=== PATIENT | male | born 1965 | race Caucasian/White ===

== ENCOUNTER 2022-09-12 13:42 | Emergency (ER) | payer BC, SELFPAY ==
--- NOTE | ~2022-09-12 | XR_ITS ---
EXAMINATION: XR chest 1V portable DATE: 09/12/2022 13:57 INDICATION: Cough. TECHNIQUE: A single frontal view of the chest was obtained. COMPARISON: None. FINDINGS: There is no pneumonia, pleural effusion, or pneumothorax. The heart size is normal. IMPRESSION: 1. No acute cardiopulmonary disease. Reviewed, dictated and finalized at location A. BOTTLE INSPECTOR
[2022-09-12 13:45] VITALS: BP 138/58; PULSE 77; RESP 16; TEMP 36.8; O2SAT 99
--- NOTE | 2022-09-12 14:03 | ECG_ITS ---
Measurements Intervals [place] Rate: 78 P: 34 AR: 191 QRS: 52 QRSD: 113 T: 13 QT: 356 QTc: 408 Interpretive Statements SINUS RHYTHM INCOMPLETE RIGHT BUNDLE BRANCH BLOCK BASELINE ARTIFACT- V3, V5 BORDERLINE ECG NO PREVIOUS ECG AVAILABLE FOR COMPARISON Electronically Signed On 09-12-2022 14:38:50 SPEEDOMETER INSPECTOR by Brian Maria D.O.
--- NOTE | 2022-09-12 14:05 | ED.SOB ---
HPI - SOB/Dyspnea General Chief Complaint: Shortness of Breath/Dyspnea Stated Complaint: asthma attack? Time Seen by Provider: 09/12/22 13:50 History of Present Illness HPI Narrative: Patient is a 57-year-old male here for evaluation of sensation of throat tightness yesterday. Patient states that when he was going to bed he felt that his throat was very dry and irritated. Shortly afterwards he had the sensation of his throat closing and he had his son call an ambulance. States by the time the ambulance got there his symptoms improved and he was asymptomatic and decided to sleep it off. His symptoms have improved since then, currently complaining of a mild pain in his chest that is worse with deep breaths and also some residual throat tightness. He states he seen an kickboxing instructor in the past and has had negative allergen testing. He has a history of COPD and has been out of his inhalers for several weeks. Denies history of anxiety. Related Data Allergies Allergy/AdvReac Type Severity Reaction Status Date / Time No Known Allergies Allergy Verified 09/12/22 14:22 Review of Systems Review of Systems: Gen.: Denies fevers or chills Eyes: Denies eye pain or visual change ENT: Denies congestion Respiratory: Denies shortness of breath or cough CV: Denies chest pain or palpitations GI: Denies abdominal pain nausea, emesis or diarrhea denies burning, urgency, frequency or hematuria Musculoskeletal: Denies back pain or muscle pain Neuro: Denies numbness, tingling, weakness or focal weakness Skin: Denies rash Except as documented, all other systems reviewed and negative Exam Narrative: APPEARANCE: Well appearing, no pain in distress, well-nourished. Head: Normocephalic and atraumatic. EYES: PERRLA/EOMI, conjunctivae clear NOSE: No nasal drainage EARS: External ear normal in appearance THROAT: Posterior oropharynx without any erythema, tonsillar swelling or exudates. Uvula is midline. Oropharynx is clear. Mucous membranes are moist. NECK: Supple. No adenopathy, no masses. RESPIRATORY: Airway patent, respirations nonlabored. Clear to auscultation bilaterally, no rales, rhonchi, wheezing. CARDIOVASCULAR: Regular rate and rhythm without murmurs, rubs, or gallops. ABDOMINAL: Normoactive bowel sounds. Soft, nontender, nondistended. No rebound tenderness or guarding. MUSCULOSKELETAL: Extremities are warm and well-perfused. Moves all extremities well. No edema. NEURO: Normal speech. No focal neurologic deficits. SKIN: Skin is warm and dry. No rashes. PSYCHIATRIC: Normal affect/mood. Course Vital Signs Vital signs: Vital Signs Temperature 98.2 F 09/12/22 13:45 Pulse Rate 77 09/12/22 13:45 Respiratory Rate 16 09/12/22 13:45 Blood Pressure 138/58 L 09/12/22 13:45 Pulse Oximetry 99 09/12/22 13:45 Temperature 98.2 F 09/12/22 13:45 Pulse Rate 75 09/12/22 15:11 Respiratory Rate 18 09/12/22 15:11 Blood Pressure 112/78 09/12/22 15:11 Pulse Oximetry 97 09/12/22 15:11 Oxygen Delivery Room Air 09/12/22 14:06 MDM - SOB/Dyspnea MDM Narrative Medical decision making narrative: 57 year old male here for evaluation of throat tightness/SOB yesterday, resolved today. Now having some chest pain with inspiration. He is non-toxic in appearance and has normal vital signs. His heart and lungs are CTA. Labs, ekg and dimer unremarkable. CXR is clear. Unclear etiology of throat tightness yesterday given that he has no history of allergies and the sensation resolved on it's own. No masses felt on exam, throat is clear throughout without tonsillar exudates or swelling. Feel imaging of the throat is unlikely to be helpful given that he is now asymptomatic. He will be discharged home with refills of his inhaler and steroids. Encouraged him to return to the ED if his throat feels tight again. Lab Data 09/12/22 14:13 09/12/22 14:13 Labs: Lab Results 09/12/22 09/12/22 09/12/22 Range/Units
[2022-09-12 14:06] VITALS: PULSE 80; O2SAT 98
[2022-09-12 14:22] VITALS: BP 112/90; PULSE 81; RESP 18; O2SAT 97
[2022-09-12 14:26] LABS: Basophils Percent Auto 0.5 % (0.2-1.2); Eosinophils Absolute Auto 0.1 K/mm3 (0-0.3); Eosinophils Percent Auto 1.4 % (0-4.4); Hematocrit 44.3 % (42.0-52.0); Hemoglobin 15.3 g/dL (14.0-18.0); Immature Granulocyte Absolute 0.01 K/mm3 (0.00-0.031); Immature Granulocyte Percent A 0.2 % (0-0.5); Lymphocytes Absolute Auto 2.11 K/mm3 (0.9-3.2); Lymphocytes Percent Auto 33.3 % (18.3-44.2); Mean Corpuscular HGB Conc 34.5 g/dl (32-36); Mean Corpuscular Hemoglobin 29.9 pg (26-34); Mean Corpuscular Volume 86.7 fl (80-100); Monocytes Absolute Auto 0.5 K/mm3 (0.1-0.6); Monocytes Percent Auto 7.6 % (2.6-8.5); Neutrophils Absolute Auto 3.6 K/mm3 (1.3-6.7); Platelet Count Result 267 k/mm3 (150-375); Red Blood Count 5.11 M/mm3 (4.6-6.20); Red Cell Distribution Width 12.3 % (11.5-14.5); White Blood Count 6.3 K/mm3 (4.5-10.0)
[2022-09-12 14:39] LABS: Alanine Aminotransferase 32 U/L (6-50); Albumin Level 4.4 g/dL (3.5-5.1); Alkaline Phosphatase 98 U/L (38-126); Anion Gap 7 mmol/L (8-16); Aspartate Amino Transferase 26 U/L (17-59); Bilirubin,Total 0.7 mg/dL (0.2-1.3); Blood Urea Nitrogen 14 mg/dL (9-20); Calcium 8.9 mg/dL (8.4-10.2); Carbon Dioxide 27 mmol/L (22-30); Chloride 104 mmol/L (98-107); Estimated CRCL calculation 132 ml/min; Estimated Glomerular Filt Rate > 60; Glucose 162 mg/dL (65-110); Potassium 3.9 mmol/L (3.4-5.0); Sodium 138 mmol/L (137-145)
[2022-09-12 14:50] LABS: Troponin I < 0.012 ng/mL (0.000-0.034)
[2022-09-12 15:01] LABS: D Dimer 0.32 ug/mL (<0.48)
[2022-09-12 15:11] VITALS: BP 112/78; PULSE 75; RESP 18; O2SAT 97
== END 2022-09-12 15:13 | disposition home or self-care (01) ==
PROVIDERS: Emergency Provider Physician Assistant
DX: R13.10 Dysphagia, unspecified (principal)
CPT/HCPCS: 36415; 71045; 80053; 84484; 85025; 85380; 93005; 99283

== ENCOUNTER 2022-12-25 09:29 | Outpatient (CLI) | payer BC, SELFPAY ==
[2022-12-25 09:55] LABS: Basophils Percent Auto 0.5 % (0.2-1.2); Eosinophils Absolute Auto 0.1 K/mm3 (0-0.3); Eosinophils Percent Auto 1.8 % (0-4.4); Hematocrit 44.3 % (42.0-52.0); Hemoglobin 14.9 g/dL (14.0-18.0); Immature Granulocyte Absolute 0.03 K/mm3 (0.00-0.031); Immature Granulocyte Percent A 0.5 % (0-0.5); Lymphocytes Absolute Auto 1.75 K/mm3 (0.9-3.2); Lymphocytes Percent Auto 30.9 % (18.3-44.2); Mean Corpuscular HGB Conc 33.6 g/dl (32-36); Mean Corpuscular Hemoglobin 30.2 pg (26-34); Mean Corpuscular Volume 89.9 fl (80-100); Mean Platelet Volume 8.6 fl (7.4-10.4); Monocytes Absolute Auto 0.5 K/mm3 (0.1-0.6); Monocytes Percent Auto 9.2 % (2.6-8.5); Neutrophils Absolute Auto 3.2 K/mm3 (1.3-6.7); Neutrophils Percent Auto 57.1 % (45.5-73.1); Platelet Count Result 247 k/mm3 (150-375); Red Blood Count 4.93 M/mm3 (4.6-6.20); Red Cell Distribution Width 12.7 % (11.5-14.5); White Blood Count 5.7 K/mm3 (4.5-10.0)
[2022-12-25 10:41] LABS: Creatinine Urine 105.4 mg/dL
[2022-12-25 10:46] LABS: MALB Creatinine Ratio 7.9 mg/g (0-30); Microalbumin Urine Random 8.3 mg/L (0-16.7)
[2022-12-25 11:36] LABS: Hemoglobin A1C 6.5 % (<5.7)
[2022-12-25 14:07] LABS: Alanine Aminotransferase 36 U/L (6-50); Albumin Level 4.3 g/dL (3.5-5.1); Alkaline Phosphatase 86 U/L (38-126); Anion Gap 3 mmol/L (8-16); Aspartate Amino Transferase 29 U/L (17-59); Bilirubin,Total 0.7 mg/dL (0.2-1.3); Blood Urea Nitrogen 15 mg/dL (9-20); Carbon Dioxide 31 mmol/L (22-30); Chloride 103 mmol/L (98-107); Cholesterol 172 mg/dL (0-200); Estimated Glomerular Filt Rate > 60; Glucose 115 mg/dL (65-110); HDL Direct 32 mg/dL; Potassium 4.3 mmol/L (3.4-5.0); Sodium 137 mmol/L (137-145); Triglycerides 78 mg/dL (<150)
[2022-12-25 14:17] LABS: LDL Cholesterol Direct 120 mg/dL
[2022-12-29 22:37] LABS: PSA, Free 0.71 ng/mL; PSA, Total 1.7 ng/mL (<=4.0)
== END 2022-12-25 09:30 | disposition home or self-care (01) ==
LOC: ANHLAB 09:31
PROVIDERS: PCP Family Medicine; Visit Provider Family Medicine
DX: I10 Essential (primary) hypertension (principal); E11.9 Type 2 diabetes mellitus without complications; N40.1 Benign prostatic hyperplasia with lower urinary tract symptoms; E78.2 Mixed hyperlipidemia
CPT/HCPCS: 36415; 80053; 80061; 82043; 83036; 84153; 84154; 85025

== ENCOUNTER 2023-01-25 13:37 | Outpatient (CLI) | payer BC, SELFPAY ==
--- NOTE | ~2023-01-25 | CT_ITS ---
EXAMINATION: CT brain wo con DATE: 01/25/2023 14:24 INDICATION: Severe headache TECHNIQUE: Computed tomography (CT) of the head was performed without intravenous contrast. The mA wa s adjusted according to patient size. Iterative reconstruction technique was employed. Exam dose: 60 5.33 mGy-cm total exam DLP. COMPARISON: None FINDINGS: Left vertebral artery calcification. Tortuous basilar artery. Mild bilateral carotid siphon internal carotid artery calcifications. No intracranial mass lesion or hemorrhage or cerebrovascular accident is detected. No midline shift o r mass effect. Normal ventricular size. No subdural or epidural hematoma. No fracture or bone destruction of the cranial vault. The mastoid air cells and included paranasal sinuses are normally developed and aerated. IMPRESSION: Cerebral atherosclerosis No acute intracranial finding Reviewed, dictated and finalized at Location A. Reviewed, dictated and finalized at location B.
== END 2023-01-25 13:38 | disposition home or self-care (01) ==
PROVIDERS: PCP Family Medicine; Visit Provider Physician Assistant
DX: R51.9 Headache, unspecified (principal); R42 Dizziness and giddiness; I67.2 Cerebral atherosclerosis
CPT/HCPCS: 70450

== ENCOUNTER 2023-06-07 09:39 | Outpatient (CLI) | payer BC, SELFPAY ==
[2023-06-07 11:02] LABS: Alanine Aminotransferase 30 U/L (6-50); Albumin Level 4.1 g/dL (3.5-5.1); Alkaline Phosphatase 91 U/L (38-126); Anion Gap 10 mmol/L (8-16); Aspartate Amino Transferase 27 U/L (17-59); Bilirubin,Total 0.6 mg/dL (0.2-1.3); Blood Urea Nitrogen 17 mg/dL (9-20); Calcium 9.1 mg/dL (8.4-10.2); Carbon Dioxide 25 mmol/L (22-30); Chloride 103 mmol/L (98-107); Cholesterol 132 mg/dL (0-200); Estimated Glomerular Filt Rate > 60; Glucose 116 mg/dL (65-110); HDL Direct 29 mg/dL; Potassium 3.9 mmol/L (3.4-5.0); Sodium 138 mmol/L (137-145); Triglycerides 64 mg/dL (<150)
[2023-06-07 11:13] LABS: LDL Cholesterol Direct 81 mg/dL
== END 2023-06-07 09:40 | disposition home or self-care (01) ==
LOC: ANHLAB 09:41
PROVIDERS: PCP Family Medicine; Visit Provider Physician Assistant
DX: E11.9 Type 2 diabetes mellitus without complications (principal); E78.5 Hyperlipidemia, unspecified; I10 Essential (primary) hypertension
CPT/HCPCS: 36415; 80053; 80061; 83036

== ENCOUNTER 2023-09-26 14:48 | Emergency (ER) | payer OTHER, BC, SELFPAY ==
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
[2023-09-26 14:50] VITALS: BP 118/86; PULSE 100; RESP 18; TEMP 36.4; O2SAT 97
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
[2023-09-26 15:08] VITALS: BP 115/77; PULSE 112; RESP 16; O2SAT 98
[2023-09-26 17:01] VITALS: BP 105/76; PULSE 91; RESP 15; TEMP 36.4; O2SAT 98
== END 2023-09-26 17:01 | disposition home or self-care (01) ==
PROVIDERS: Emergency Provider Nurse Practitioner Family; PCP Family Medicine
DX: S16.1XXA Strain of muscle, fascia and tendon at neck level, initial encounter (principal); S39.012A Strain of muscle, fascia and tendon of lower back, initial encounter; I10 Essential (primary) hypertension; J44.9 Chronic obstructive pulmonary disease, unspecified; E11.9 Type 2 diabetes mellitus without complications; E78.5 Hyperlipidemia, unspecified; Z79.82 Long term (current) use of aspirin; Z79.84 Long term (current) use of oral hypoglycemic drugs; V49.40XA Driver injured in collision with unspecified motor vehicles in traffic accident, initial encounter
CPT/HCPCS: 70450; 72125; 72131; 99284; L0140

== ENCOUNTER 2024-01-10 13:54 | Outpatient (CLI) | payer BC, SELFPAY ==
[2024-01-10 14:48] LABS: Influenza A QL RT-PCR Negative (Negative); Influenza B QL RT-PCR Negative (Negative); RSV RNA, RT-PCR Negative (Negative); SARS-CoV-2 RNA PCR Positive (Negative)
== END 2024-01-10 13:55 | disposition home or self-care (01) ==
PROVIDERS: PCP Family Medicine; Visit Provider Physician Assistant
DX: J02.9 Acute pharyngitis, unspecified (principal); Z20.822 Contact with and (suspected) exposure to COVID-19
CPT/HCPCS: 87637

== ENCOUNTER 2024-01-10 16:36 | Outpatient (CLI) | payer BC, SELFPAY ==
--- NOTE | ~2024-01-10 | XR_ITS ---
XR chest 2V Ordering provider: Melita Bermeo PA-C History: 58 years Male with . DYSPNEA . Comparison: September 12, 2022 FINDINGS: MEDIASTINUM: The cardiac silhouette is not enlarged. LUNGS: No infiltrates, effusions or pneumothorax. OTHER: No free air under the diaphragm. IMPRESSION: No acute cardiopulmonary pathology. Reviewed, dictated and finalized at location A.
== END 2024-01-10 16:37 ==
PROVIDERS: PCP Family Medicine; Visit Provider Physician Assistant
DX: R06.00 Dyspnea, unspecified (principal)
CPT/HCPCS: 71046

== ENCOUNTER 2024-02-12 09:09 | Outpatient (CLI) | payer BC, SELFPAY ==
[2024-02-12 09:38] LABS: Basophils Absolute Auto 0.1 K/mm3 (0.0-0.1); Basophils Percent Auto 0.9 % (0.2-1.2); Eosinophils Absolute Auto 0.1 K/mm3 (0-0.3); Hematocrit 46.3 % (42.0-52.0); Hemoglobin 15.5 g/dL (14.0-18.0); Immature Granulocyte Absolute 0.02 K/mm3 (0.00-0.031); Immature Granulocyte Percent A 0.4 % (0-0.5); Lymphocytes Absolute Auto 1.78 K/mm3 (0.9-3.2); Lymphocytes Percent Auto 32.8 % (18.3-44.2); Mean Corpuscular HGB Conc 33.5 g/dl (32-36); Mean Corpuscular Hemoglobin 30.2 pg (26-34); Mean Corpuscular Volume 90.3 fl (80-100); Monocytes Absolute Auto 0.5 K/mm3 (0.1-0.6); Monocytes Percent Auto 8.8 % (2.6-8.5); Neutrophils Percent Auto 55.1 % (45.5-73.1); Platelet Count Result 215 k/mm3 (150-375); Red Blood Count 5.13 M/mm3 (4.6-6.20); Red Cell Distribution Width 12.9 % (11.5-14.5); White Blood Count 5.4 K/mm3 (4.5-10.0)
[2024-02-12 09:46] LABS: Alanine Aminotransferase 28 U/L (6-50); Albumin Level 4.5 g/dL (3.5-5.1); Alkaline Phosphatase 93 U/L (38-126); Anion Gap 8 mmol/L (4-12); Aspartate Amino Transferase 24 U/L (17-59); Bilirubin,Total 0.6 mg/dL (0.2-1.3); Blood Urea Nitrogen 22 mg/dL (9-20); Calcium 9.2 mg/dL (8.4-10.2); Carbon Dioxide 26 mmol/L (22-30); Chloride 105 mmol/L (98-107); Cholesterol 148 mg/dL (0-200); Estimated Glomerular Filt Rate > 60; Glucose 111 mg/dL (65-110); HDL Direct 41 mg/dL; Potassium 4.1 mmol/L (3.4-5.0); Sodium 139 mmol/L (137-145); Triglycerides 85 mg/dL (<150)
[2024-02-12 09:58] LABS: LDL Cholesterol Direct 83 mg/dL
[2024-02-12 10:02] LABS: Hemoglobin A1C 6.4 % (<5.7)
== END 2024-02-12 09:10 | disposition home or self-care (01) ==
PROVIDERS: PCP Family Medicine; Visit Provider Physician Assistant
DX: E78.5 Hyperlipidemia, unspecified (principal); E11.9 Type 2 diabetes mellitus without complications; I10 Essential (primary) hypertension
CPT/HCPCS: 36415; 80053; 80061; 83036; 85025

== ENCOUNTER 2024-07-29 07:30 | Outpatient (CLI) | payer BC, SELFPAY ==
[2024-07-29 08:04] LABS: Hematocrit 45.5 % (42.0-52.0); Hemoglobin 15.8 g/dL (14.0-18.0); Mean Corpuscular HGB Conc 34.7 g/dl (32-36); Mean Corpuscular Hemoglobin 30.6 pg (26-34); Mean Corpuscular Volume 88.2 fl (80-100); Mean Platelet Volume 8.9 fl (7.4-10.4); Platelet Count Result 243 k/mm3 (150-375); Red Blood Count 5.16 M/mm3 (4.6-6.20); Red Cell Distribution Width 12.7 % (11.5-14.5); White Blood Count 6.1 K/mm3 (4.5-10.0)
[2024-07-29 08:42] LABS: LDL Cholesterol Direct 87 mg/dL
[2024-07-29 09:12] LABS: Alanine Aminotransferase 30 U/L (6-50); Albumin Level 4.1 g/dL (3.5-5.1); Alkaline Phosphatase 75 U/L (38-126); Anion Gap 7 mmol/L (4-12); Aspartate Amino Transferase 34 U/L (17-59); Bilirubin,Total 0.8 mg/dL (0.2-1.3); Blood Urea Nitrogen 18 mg/dL (9-20); Calcium 9.2 mg/dL (8.4-10.2); Carbon Dioxide 25 mmol/L (22-30); Chloride 103 mmol/L (98-107); Cholesterol 141 mg/dL (0-200); Estimated Glomerular Filt Rate > 60; Glucose 107 mg/dL (65-110); HDL Direct 36 mg/dL; Potassium 4.4 mmol/L (3.4-5.0); Sodium 135 mmol/L (137-145); Triglycerides 87 mg/dL (<150)
[2024-07-29 09:17] LABS: Hemoglobin A1C 6.4 % (<5.7)
[2024-07-29 09:22] LABS: Creatinine Urine 100.1 mg/dL
[2024-07-29 09:24] LABS: MALB Creatinine Ratio 9.1 mg/g (0-30); Microalbumin Urine Random 9.1 mg/L (0-16.7)
--- OUTSIDE RECORDS SUMMARY | 2024-08-03 08:30 | XMS_ITS | Continuity of Care Document ---
Author Organization [facility] Address [address] [place] [address] Care Team Providers Care Poultry Boner Name Role Phone Wilber Castillo MD Unavailable Unavailable Procedures Procedure Date Duplex Scan-extrem Veins; Comp 19 Echo W/rest & Stress-interp & Cv Stress; Interpt & Reprt Onl 17 Cv Stress; Phys Supervs Only Advance Directives Directive Yes / No Effective Date File Name No Information Encounters Encounter Description Practice Location Reason(s) For Visit Diagnoses Date Provider Providers Copied on Encounter [facility], [address] [place] [address], [facility], [facility] No Information 9 Jonathan Merino. [address] [facility], [address] [place] [address], [facility], . tel:[phone] Referring Provider: Dong Garcia, [address], [address]. tel:[phone] [facility], [address] [place] [address], [address], [facility] No Information 7 Isabella Boothe. [address] [facility], [address], [place], [place], [facility], . tel:[phone] Referring Provider: Dong Garcia, [address], [place], [address]. tel:[phone] Family History Family Member Type Diagnosis Age At Onset No Information Payers Payer name Insurance type Covered green party ID Ulices ham(s) [employer] CI [id number] Social History Type Description Quantity Date Captured [...]
== END 2024-07-29 07:31 | disposition home or self-care (01) ==
LOC: ANHLAB 07:33
PROVIDERS: PCP Family Medicine; Visit Provider Physician Assistant
DX: E78.5 Hyperlipidemia, unspecified (principal); I10 Essential (primary) hypertension; E11.9 Type 2 diabetes mellitus without complications
CPT/HCPCS: 36415; 80053; 80061; 82043; 83036; 85027

== ENCOUNTER 2024-12-11 08:05 | Emergency (ER) | payer BC, SELFPAY ==
--- NOTE | ~2024-12-11 | CT_ITS ---
EXAMINATION: CT soft tissue neck w con DATE: 12/11/2024 11:00 INDICATION: Tonsillar abscess TECHNIQUE: Computed tomography (CT) of the neck was performed with 75 mL Omnipaque-350 intravenous co ntrast. Automated exposure control and iterative reconstruction technique were employed. The dose-john gth product was 527.53 mGy-cm. COMPARISON: Cervical spine CT dated 09/26/2023 FINDINGS: Orbits are normal. The paranasal sinuses are clear. Mild mucoperiosteal thickening the bilateral ethm oid sinuses. Mastoid air cells and middle ear cavities are clear. Submandibular and parotid glands ar e symmetric. Thyroid gland is unremarkable. There are scattered normal-sized lymph nodes in the neck, no lymphadenopathy. There are a few dystrophic calcifications at the bilateral palatine and right li ngual tonsils. No peritonsillar abscess. Retropharyngeal/prevertebral soft tissues are unremarkable. No masses identified. Airway is patent with normal epiglottis. The vasculature is patent and normal i n caliber. Superior mediastinum is unremarkable. Lung apices are normal. IMPRESSION: 1. Dystrophic calcifications at the palatine and lingual tonsils. No significant soft tissue swelling or evident peritonsillar abscess. Reviewed, dictated and finalized at location A. IMPRESSION: 1. Dystrophic calcifications at the palatine and lingual tonsils. No significan t soft tissue swelling or evident peritonsillar abscess.
--- NOTE | ~2024-12-11 | XR_ITS ---
Clinical Indication: Cough PA and lateral views of the chest: Comparison: 01/10/2024 Findings: The lungs are clear, without evidence of focal consolidation or pleural effusion. Cardiome diastinal silhouette is within normal limits. Bones and soft tissues are unremarkable. Impression: Normal chest. Reviewed, dictated and finalized at location . Impression: Normal chest.
[2024-12-11 08:08] VITALS: BP 119/86; PULSE 108; RESP 20; TEMP 36.7; O2SAT 98
--- OUTSIDE RECORDS SUMMARY | 2024-12-11 08:08 | XMS_ITS | Continuity of Care Document ---
Author Organization [facility] Address [address] [place] [address] Care Team Providers Care Tattoo Designer Name Role Phone Wilber Castillo MD Unavailable Unavailable Procedures Procedure Date Duplex Scan-extrem Veins; Comp 19 Echo W/rest & Stress-interp & Cv Stress; Interpt & Reprt Onl 17 Cv Stress; Phys Supervs Only Advance Directives Directive Yes / No Effective Date File Name No Information Encounters Encounter Description Practice Location Reason(s) For Visit Diagnoses Date Provider Providers Copied on Encounter [facility], [address] [place] [address], [facility], [facility] No Information 9 Jonathan Merino. [address] [facility], [address] [place] [address], [facility], . tel:[phone] Referring Provider: Dong Garcia, [address], [place], [address]. tel:[phone] [facility], [address] [place] [address], [address], [facility] No Information 7 Isabella Boothe. [address] [facility], [address], [place], [place], [facility], . tel:[phone] Referring Provider: Dong Garcia, [address], [place], [address]. tel:[phone] Family History Family Member Type Diagnosis Age At Onset No Information Payers Payer name Insurance type Covered libertarian ID Ulices ham(s) [employer] CI [id number] Social History Type Description Quantity Date Captured [...]
[2024-12-11 08:11] VITALS: O2SAT 98
[2024-12-11] MEDS: SODIUM CHLORIDE 0.9% IV 1,000 ML 150 ML IV CONT (09:34)
[2024-12-11 09:36] LABS: Influenza A QL RT-PCR Negative (Negative); Influenza B QL RT-PCR Negative (Negative); SARS-CoV-2 RNA PCR Negative (Negative)
[2024-12-11] MEDS: ONDANSETRON INJ 4 MG/2 ML VIAL IV PUSH (09:40)
[2024-12-11] MEDS: dexAMETHasone SOD PHOS INJ 10 MG/ML 1 ML VIAL IV PUSH (09:40)
[2024-12-11] MEDS: MORPHINE SULFATE (*CRX) 4 MG/ML INJ IV PUSH (09:43)
--- OUTSIDE RECORDS SUMMARY | 2024-12-11 09:47 | XMS_ITS | Continuity of Care Document ---
Author Organization [facility] Address [address] [place] [address] Care Team Providers Care Slide Forming Machine Tender Name Role Phone Wilber Castillo MD Unavailable Unavailable Procedures Procedure Date Duplex Scan-extrem Veins; Comp 19 Echo W/rest & Stress-interp & Cv Stress; Interpt & Reprt Onl 17 Cv Stress; Phys Supervs Only Advance Directives Directive Yes / No Effective Date File Name No Information Encounters Encounter Description Practice Location Reason(s) For Visit Diagnoses Date Provider Providers Copied on Encounter [facility], [address] [place] [address], [facility], [facility] No Information 9 Jonathan Merino. [address] [facility], [address] [place] [address], [facility], . tel:[phone] Referring Provider: Dong Garcia, [address], [address]. tel:[phone] [facility], [address] [place] [address], [address], [facility] No Information 7 Isabella Boothe. [address] [facility], [address], [place], [place], [facility], . tel:[phone] Referring Provider: Dong Garcia, [address], [place], [address]. tel:[phone] Family History Family Member Type Diagnosis Age At Onset No Information Payers Payer name Insurance type Covered republican ID Ulices ham(s) [employer] CI [id number] Social History Type Description Quantity Date Captured [...]
[2024-12-11 09:57] LABS: Basophils Absolute Auto 0.1 K/mm3 (0.0-0.1); Basophils Percent Auto 0.3 % (0.2-1.2); Eosinophils Percent Auto 0.3 % (0-4.4); Hematocrit 46.1 % (42.0-52.0); Hemoglobin 15.7 g/dL (14.0-18.0); Immature Granulocyte Absolute 0.06 K/mm3 (0.00-0.031); Immature Granulocyte Percent A 0.4 % (0-0.5); Lymphocytes Absolute Auto 1.64 K/mm3 (0.9-3.2); Lymphocytes Percent Auto 10.8 % (18.3-44.2); Mean Corpuscular HGB Conc 34.1 g/dl (32-36); Mean Corpuscular Hemoglobin 30.5 pg (26-34); Mean Corpuscular Volume 89.5 fl (80-100); Mean Platelet Volume 8.9 fl (7.4-10.4); Monocytes Absolute Auto 1.3 K/mm3 (0.1-0.6); Monocytes Percent Auto 8.6 % (2.6-8.5); Neutrophils Absolute Auto 12.1 K/mm3 (1.3-6.7); Neutrophils Percent Auto 79.6 % (45.5-73.1); Platelet Count Result 256 k/mm3 (150-375); Red Blood Count 5.15 M/mm3 (4.6-6.20); Red Cell Distribution Width 12.7 % (11.5-14.5); White Blood Count 15.2 K/mm3 (4.5-10.0)
[2024-12-11 10:21] LABS: Strep Group A RT-PCR NOT DETECTED (Negative)
[2024-12-11 11:01] LABS: Estimated CRCL calculation 98 ml/min; Estimated Glomerular Filt Rate > 60
[2024-12-11 11:19] LABS: Alanine Aminotransferase 19 U/L (6-50); Albumin Level 4.2 g/dL (3.5-5.1); Alkaline Phosphatase 99 U/L (38-126); Anion Gap 9 mmol/L (4-12); Aspartate Amino Transferase 24 U/L (17-59); Bilirubin,Total 0.8 mg/dL (0.2-1.3); Blood Urea Nitrogen 18 mg/dL (9-20); Calcium 9.3 mg/dL (8.4-10.2); Carbon Dioxide 26 mmol/L (22-30); Chloride 103 mmol/L (98-107); Estimated CRCL calculation 98 ml/min; Estimated Glomerular Filt Rate > 60; Glucose 115 mg/dL (65-110); Potassium 4.1 mmol/L (3.4-5.0); Sodium 138 mmol/L (137-145)
--- NOTE | 2024-12-11 12:18 | ED_ITS ---
HPI - General Adult General Chief complaint: Upper Respiratory Infection Stated complaint: difficulty swallowing Time Seen by Provider: 12/11/24 09:08 Source: patient Mode of arrival: ambulatory Limitations: no limitations History of Present Illness HPI narrative: 59-year-old with a history of hypertension, BPH, diabetes, COPD was brought in from Dr. Guadalupe's office with the complaints of sore throat and having difficulty in swallowing for few days. He denies any fever or chills. He states his throat is all resolved he also complains of cough denies shortness of breath. Cough is nonproductive in Onset (ago): day(s) (5) Location: mouth Radiation: non-radiation Severity: moderate Quality: aching Pain Consistency: constant Relieving factors: none Exacerbating factors: other (Swallowing) Associated symptoms: cough Related Data Home Medications ?Medication ?Instructions ?Recorded ?Confirmed ?Last Taken ?Type cholecalciferol (vitamin D3) 50 50 mcg PO DAILY 02/23/23 12/11/24 Unknown History mcg (2,000 unit) capsule coenzyme Q10 100 mg capsule 100 mg PO DAILY 02/23/23 12/11/24 Unknown History (CoQ-10) [id number] 1 tablet PO DAILY 02/23/23 12/11/24 Unknown History tablet (Multivitamin 50 Plus tablet) omega-3 fatty acids 500 mg capsule 500 mg PO DAILY 02/23/23 12/11/24 Unknown History aspirin 81 mg tablet,delayed 81 mg PO DAILY 06/14/23 12/11/24 Unknown History release (Adult Aspirin Regimen) Allergies Allergy/AdvReac Type Severity Reaction Status Date / Time niacin AdvReac Severe hot flashes Verified 12/11/24 08:14 Review of Systems 2 Review of Systems: All systems reviewed & are unremarkable except as noted in HPI and below Constitutional: Constitutional: Reports no additional constitutional complaints Eyes: Eyes: Reports no additional eye complaints ENT: Reports as per HPI Cardiovascular: Cardiovascular: Reports no additional cardiovascular complaints Respiratory: Respiratory: Reports as per HPI Gastrointestinal: Gastrointestinal: Reports no additional gastrointestinal complaints Musculoskeletal: Musculoskeletal: Reports no additional musculoskeletal complaints [facility] Past Medical History Medical History Umbilical hernia Hypertension Anemia Asthma Lumbar spondylosis COPD (chronic obstructive pulmonary disease) case management patient Diabetes mellitus Hyperlipidemia Benign essential HTN Family History Family History Father Alcohol abuse Mother Heart disease Social History Social History Social History: Smoking status: Never smoker Second hand tobacco smoke exposure: No Alcohol intake: never Substance use: never Substance use type: does not use Do You Feel Safe in your Home?: Yes Lack of Transportation: No Lack of Food: Sometimes True Current Housing: I Have Housing Concerned About Future Housing: Decline to Answer Difficulty Paying Gas/Electric Bills: Decline to Answer Difficulty Paying for Meds: Decline to Answer Currently Unemployed: No Education: Trade/Vocational Certificate Difficulty w/ Childcare or Family Care: No Living arrangements: with family Occupation/Education: occupation Gender identity (if verbalized by the patient): Male Sexual Orientation (if Verbalized by the Patient): Straight or Heterosexual Exam 2 Narrative: GENERAL: Well-appearing, well-nourished, and in no acute distress. HEAD: Normocephalic, atraumatic. EYES: PERRLA and EOMI. ENT: Nares clear, no rhinorrhea or epistaxis. Mucous membranes moist. Mild erythematous tonsillar fossa no obvious abscess noted, uvula midline NECK: Supple. CHEST: Clear to auscultation. No respiratory distress. HEART: Regular rate and rhythm. No murmur heard. Normal peripheral pulses EXTREMITIES: Normal range of motion. No edema. SKIN: Warm, dry, no rash. NEURO: No focal deficits. Alert and oriented x3. PSYCH: Normal mood and affect. Course Course Emergency Course: Notified patient about his CT findings and I did discuss with the 80 recommended clindamycin and steroids will follow-up in the office. Patient is pacing in the room he wants to go home Vital Signs Vital signs: Vital Signs Temperature 36.7 C 12/11/24 08:08 Pulse Rate 108 H 12/11/24 08:08 Respiratory Rate 20 12/11/24 08:08 Blood Pressure 119/86 12/11/24 08:08 Pulse Oximetry 98 12/11/24 08:08 Oxygen Delivery Room Air 12/11/24 08:08 Temperature 36.7 C 12/11/24 08:08 Pulse Rate 108 H 12/11/24 08:08 Respiratory Rate 18 12/11/24 12:48 Blood Pressure 119/86 12/11/24 08:08 Pulse Oximetry 100 12/11/24 12:48 Oxygen Delivery Room Air 12/11/24 08:11 Medical Decision Making Vital Signs Vital Signs: Vital Signs Temperature 36.7 C 12/11/24 08:08 Pulse Rate 108 H 12/11/24 08:08 Respiratory Rate 20 12/11/24 08:08 Blood Pressure 119/86 12/11/24 08:08 Pulse Oximetry 98 12/11/24 08:08 Oxygen Delivery Room Air 12/11/24 08:08 Temperature 36.7 C 12/11/24 08:08 Pulse Rate 108 H 12/11/24 08:08 Respiratory Rate 18 12/11/24 12:48 Blood Pressure 119/86 12/11/24 08:08 Pulse Oximetry 100 12/11/24 12:48 Oxygen Delivery Room Air 12/11/24 08:11 Lab Data Lab results reviewed: Yes I reviewed the patient's lab results. 12/11/24 09:50 12/11/24 10:57 Labs: Lab Results 12/11/24 12/11/24 12/11/24 Range/Units 08:55 09:50 09:51 WBC 15.2 H (4.5-10.0) K/mm3 RBC 5.15 (4.6-6.20) M/mm3 Hgb 15.7 (14.0-18.0) g/dL Hct 46.1 (42.0-52.0) % MCV 89.5 (80-100) fl MCH 30.5 (26-34) pg MCHC 34.1 (32-36) g/dl RDW 12.7 (11.5-14.5) % Plt Count 256 (150-375) k/mm3 MPV 8.9 (7.4-10.4) fl Immature Gran % (Auto) 0.4 (0-0.5) % Neut % (Auto) 79.6 H (45.5-73.1) % Lymph % (Auto) 10.8 L (18.3-44.2) % Hodgeman % (Auto) 8.6 H (2.6-8.5) % Eos % (Auto) 0.3 (0-4.4) % Baso % (Auto) 0.3 (0.2-1.2) % Lymph # (Auto) 1.64 (0.9-3.2) K/mm3 Hodgeman # (Auto) 1.3 H (0.1-0.6) K/mm3 Eos # (Auto) 0.0 (0-0.3) K/mm3 Baso # (Auto) 0.1 (0.0-0.1) K/mm3 Abs Immat Gran (auto) 0.06 H (0.00-0.031) K/mm3 Absolute Neuts (auto) 12.1 H (1.3-6.7) K/mm3 Absolute Nucleated RBC 0.000 (0.0-0.012) K/mm3 Nucleated RBC % 0.0 (0.0-0.2) % Sodium 138 (137-145) mmol/L Potassium 4.1 (3.4-5.0) mmol/L Chloride 103 (98-107) mmol/L Carbon Dioxide 26 (22-30) mmol/L Anion Gap 9 (4-12) mmol/L BUN 18 (9-20) mg/dL Creatinine 0.70 (0.7-1.3) mg/dL Estim Creat Clear Calc 98 ml/min Estimated GFR > 60 (59 - ) Glucose 115 H (65-110) mg/dL Lactic Acid (0.7-2.0) mmol/L Calcium 9.3 (8.4-10.2) mg/dL Total Bilirubin 0.8 (0.2-1.3) mg/dL AST 24 (17-59) U/L ALT 19 (6-50) U/L Alkaline Phosphatase 99 (38-126) U/L Total Protein 8.0 (6.3-8.2) g/dL Albumin 4.2 (3.5-5.1) g/dL Influenza A (RT-PCR) Negative (Negative) Influenza B (RT-PCR) Negative (Negative) SARS-CoV-2 RNA (RT-PCR) Negative (Negative) Group A Strep (PCR) Not detected (Negative) 12/11/24 12/11/24 Range/Units 10:00 10:57 WBC (4.5-10.0) K/mm3 RBC (4.6-6.20) M/mm3 Hgb (14.0-18.0) g/dL Hct (42.0-52.0) % MCV (80-100) fl MCH (26-34) pg MCHC (32-36) g/dl RDW (11.5-14.5) % Plt Count (150-375) k/mm3 MPV (7.4-10.4) fl Immature Gran % (Auto) (0-0.5) % Neut % (Auto) (45.5-73.1) % Lymph % (Auto) (18.3-44.2) % Hodgeman % (Auto) (2.6-8.5) % Eos % (Auto) (0-4.4) % Baso % (Auto) (0.2-1.2) % Lymph # (Auto) (0.9-3.2) K/mm3 Hodgeman # (Auto) (0.1-0.6) K/mm3 Eos # (Auto) (0-0.3) K/mm3 Baso # (Auto) (0.0-0.1) K/mm3 Abs Immat Gran (auto) (0.00-0.031) K/mm3 Absolute Neuts (auto) (1.3-6.7) K/mm3 Absolute Nucleated RBC (0.0-0.012) K/mm3 Nucleated RBC % (0.0-0.2) % Sodium (137-145) mmol/L Potassium (3.4-5.0) mmol/L Chloride (98-107) mmol/L Carbon Dioxide (22-30) mmol/L Anion Gap (4-12) mmol/L BUN (9-20) mg/dL Creatinine 0.70 L (0.7-1.3) mg/dL Estim Creat Clear Calc 98 ml/min Estimated GFR > 60 (59 - ) Glucose (65-110) mg/dL Lactic Acid 1.0 (0.7-2.0) mmol/L Calcium (8.4-10.2) mg/dL Total Bilirubin (0.2-1.3) mg/dL AST (17-59) U/L ALT (6-50) U/L Alkaline Phosphatase (38-126) U/L Total Protein (6.3-8.2) g/dL Albumin (3.5-5.1) g/dL Influenza A (RT-PCR) (Negative) Influenza B (RT-PCR) (Negative) SARS-CoV-2 RNA (RT-PCR) (Negative) Group A Strep (PCR) (Negative) Imaging Data Radiologist's impression: ITS Impressions Chest X-Ray 12/11/24 09:06 Impression: Normal chest. Soft Tissue Neck CT 12/11/24 11:06 IMPRESSION: 1. Dystrophic calcifications at the palatine and lingual tonsils. No significant soft tissue swelling or evident peritonsillar abscess. Discharge Plan Discharge Clinical Impression: Acute infective tonsillitis Qualifiers: Pharyngitis/tonsillitis etiology: unspecified etiology Qualified Code(s): J 03.90 - Acute tonsillitis, unspecified Patient Disposition: Home Condition: Stable Instructions: Antibiotic Form, Tonsillitis (ED) Patient Language: German Prescriptions: New prednisone 20 mg tablet 20 mg PO BID Qty: 14 0RF lidocaine HCl [Lidocaine Viscous] 2 % solution 5 ml mucous membrane TID PRN (Reason: pain) Qty: 100 0RF clindamycin HCl [Cleocin HCl] 300 mg capsule 300 mg PO Q6H Qty: 30 0RF No Action triamcinolone acetonide 0.1 % cream 1 applic topical BID Qty: 453.6 0RF coenzyme Q10 [CoQ-10] 100 mg capsule 100 mg PO DAILY omega-3 fatty acids 500 mg capsule 500 mg PO DAILY cholecalciferol (vitamin D3) 50 mcg (2,000 unit) capsule 50 mcg PO DAILY Multivitamin 50 Plus Tablet 1 tablet PO DAILY aspirin [Adult Aspirin Regimen] 81 mg tablet,delayed release (DR/EC) 81 mg PO DAILY albuterol sulfate 90 mcg/actuation HFA aerosol inhaler 1 inh inhalation QID PRN (Reason: shortness of breath or wheezing) Qty: 6.7 0RF naproxen 500 mg tablet 500 mg PO BID PRN (Reason: pain) 7 Days Qty: 14 0RF omeprazole 20 mg capsule,delayed release(DR/EC) 20 mg PO DAILY Qty: 90 0RF azelastine 137 mcg (0.1 %) spray,non-aerosol 137 mcg intranasal Q12H Qty: 30 0RF Rx Instructions: administer into each nostril atorvastatin 20 mg tablet 20 mg PO DAILY Qty: 90 1RF lisinopril 10 mg tablet See Rx Instructions .ROUTE .COMPLEX Qty: 90 1RF Dose Instruction: Take 1 tablet by mouth once daily Rx Instructions: Take 1 tablet by mouth once daily metformin 500 mg tablet See Rx Instructions .ROUTE .COMPLEX Qty: 30 5RF Dose Instruction: Take 1 tablet by mouth once daily Rx Instructions: Take 1 tablet by mouth once daily Farxiga 10 mg tablet See Rx Instructions .ROUTE .COMPLEX Qty: 30 5RF Dose Instruction: Take 1 tablet by mouth once daily Rx Instructions: Take 1 tablet by mouth once daily tamsulosin 0.4 mg capsule 0.4 mg PO DAILY Qty: 90 1RF tadalafil 20 mg tablet 20 mg PO DAILY PRN (Reason: sexual activity) Qty: 30 0RF Rx Instructions: administer approximately 30min before sexual activity; do not use more than 1 dose per 24hrs gabapentin 300 mg capsule 300 mg PO DAILY Qty: 90 1RF finasteride 5 mg tablet See Rx Instructions .ROUTE .COMPLEX Qty: 30 0RF Dose Instruction: Take 1 tablet by mouth once daily Rx Instructions: Take 1 tablet by mouth once daily Follow-up/Referrals: Francesca Falcon MD [Physician] - Cayetano Guadalupe MD [Primary Care Provider] - Time of Disposition: 12:23
[2024-12-11 12:48] VITALS: RESP 18; O2SAT 100
== END 2024-12-11 12:50 | disposition home or self-care (01) ==
PROVIDERS: Physician Assistant; Emergency Provider Family Medicine; PCP Family Medicine
DX: J03.90 Acute tonsillitis, unspecified (principal); Z20.822 Contact with and (suspected) exposure to COVID-19; I10 Essential (primary) hypertension; D64.9 Anemia, unspecified; J45.909 Unspecified asthma, uncomplicated; E11.9 Type 2 diabetes mellitus without complications; E78.5 Hyperlipidemia, unspecified
CPT/HCPCS: 36415; 70491; 71046; 80053; 83605; 85025; 87636; 87651; 96361; 96374; 96375; 99284; J1100; J2270; J2405; J7030; Q9967

== ENCOUNTER 2024-12-11 13:06 | Outpatient (CLI) | payer BC, SELFPAY ==
--- OUTSIDE RECORDS SUMMARY | 2024-12-11 13:16 | XMS_ITS | Continuity of Care Document ---
Author Organization [facility] Address [address] [place] [id number] Care Team Providers Care Paginator Name Role Phone Wilber Castillo MD Unavailable Unavailable Procedures Procedure Date Duplex Scan-extrem Veins; Comp 19 Echo W/rest & Stress-interp & Cv Stress; Interpt & Reprt Onl 17 Cv Stress; Phys Supervs Only Advance Directives Directive Yes / No Effective Date File Name No Information Encounters Encounter Description Practice Location Reason(s) For Visit Diagnoses Date Provider Providers Copied on Encounter [facility], [address] [place] [address], [facility] No Information 9 Jonathan Merino. [address] [facility], [address] [place] [address], [facility], . tel:[phone] Referring Provider: Dong Garcia, [address], [address]. tel:[phone] [facility], [address] [place] [address], [address], [facility] No Information 7 Isabella Boothe. [address] [facility], [address], [place], [place], [facility], . tel:[phone] Referring Provider: Dong Garcia, [address], [place], [address]. tel:[phone] Family History Family Member Type Diagnosis Age At Onset No Information Payers Payer name Insurance type Covered constitution party ID Ulices ham(s) [employer] CI [id number] Social History Type Description Quantity Date Captured [...]
[2024-12-11 13:42] LABS: Cholesterol 133 mg/dL (0-200); HDL Direct 40 mg/dL; Triglycerides 66 mg/dL (<150)
[2024-12-11 13:53] LABS: LDL Cholesterol Direct 72 mg/dL
[2024-12-11 13:55] LABS: Hemoglobin A1C 6.3 % (<5.7)
== END 2024-12-11 13:07 | disposition home or self-care (01) ==
LOC: ANHLAB 13:07
PROVIDERS: PCP Family Medicine; Visit Provider Family Medicine
DX: E78.5 Hyperlipidemia, unspecified (principal); E11.9 Type 2 diabetes mellitus without complications
CPT/HCPCS: 36415; 80061; 83036

== ENCOUNTER 2025-03-20 08:45 | Outpatient (CLI) | payer BC, SELFPAY ==
--- OUTSIDE RECORDS SUMMARY | 2018-07-17 19:00 | XMS_ITS | Continuity of Care Document ---
Author Organization [facility] Address [address] [place] [address] Care Team Providers Care Crew Caller Name Role Phone Wilber Castillo MD Unavailable Unavailable Procedures Procedure Date Duplex Scan-extrem Veins; Comp 19 Echo W/rest & Stress-interp & Cv Stress; Interpt & Reprt Onl 17 Cv Stress; Phys Supervs Only Advance Directives Directive Yes / No Effective Date File Name No Information Encounters Encounter Description Practice Location Reason(s) For Visit Diagnoses Date Provider Providers Copied on Encounter [facility], [address] [place] [address], [facility], [facility] No Information 9 Jonathan Merino. [address] [facility], [address] [place] [address], [facility], . tel:[phone] Referring Provider: Dong Garcia, [address], [place], [address]. tel:[phone] [facility], [address] [place] [address], [address], [facility] No Information 7 Isabella Boothe. [address] [facility], [address], [place], [place], [facility], . tel:[phone] Referring Provider: Dong Garcia, [address], [place], [address]. tel:[phone] Family History Family Member Type Diagnosis Age At Onset No Information Payers Payer name Insurance type Covered libertarian ID Ulices ham(s) [employer] CI [id number] Social History Type Description Quantity Date Captured Comments Sex Male Smoking Status No Information Chief Complaint And Reason For Visit No Information Reason For Referral Reason For Referral No Information History Of Present Illness Encounter Date Complaint History Of Prese nt Illness No Information Functional Status Date Functional Assessmen t No Information Instructions Date Instruction Additional Infor mation No Information Assessments Type Assessment Date No Information Patient Care Teams Name Effective Dates (start - stop) Status Members No Information
[2025-03-20 09:59] LABS: Syphilis IgG/IgM Antibody Non-Reactive (Nonreactive)
[2025-03-20 10:03] LABS: Hepatitis B Surface Antigen Negative (Negative)
[2025-03-20 10:09] LABS: HAV RESULT Negative (Negative); Hepatitis B Core IgM Result Negative (Negative)
[2025-03-20 10:11] LABS: HIV 1/2 Ab P24 Ag Result Negative (Negative)
[2025-03-20 10:17] LABS: Trichomonas Vag PCR NOT DETECTED (NOT DETECTE)
== END 2025-03-20 08:46 | disposition home or self-care (01) ==
LOC: ANHLAB 08:47
PROVIDERS: PCP Family Medicine; Visit Provider Physician Assistant
DX: N48.9 Disorder of penis, unspecified (principal); Z20.2 Contact with and (suspected) exposure to infections with a predominantly sexual mode of transmission
CPT/HCPCS: 36415; 80074; 86593; 86703; 87491; 87591; 87661; G0432

== ENCOUNTER 2025-05-15 08:37 | Outpatient (CLI) | payer BC, SELFPAY ==
[2025-05-15 10:36] LABS: Hemoglobin A1C 6.0 % (<5.7)
== END 2025-05-15 08:38 | disposition home or self-care (01) ==
LOC: ANHLAB 08:39
PROVIDERS: PCP Family Medicine; Visit Provider Family Medicine
DX: E11.9 Type 2 diabetes mellitus without complications (principal)
CPT/HCPCS: 36415; 83036